=== PATIENT | female | born 1940 | race Caucasian/White ===

== ENCOUNTER → 2016-06-27 | Outpatient (REF) ==
[~2016-06-27] MED LIST: ASPIR-LOW81 MG PO; CLOPIDOGREL; MEVACOR; NEXIUM PO; NEXIUM40 MG PO; TOPROL; TRIAVIL; ZEGERID 20 MG-11 CAP PO; ZOCOR 20MG20 MG PO; [UNRECOGNIZED DRUG - OTHER]
[2016-06-27 13:25] LABS: THYROID STIMULATING HORMONE 0.452 uIU/mL (0.465-4.680)
== END ==
LOC: ZLAB.WCH 12:03
PROVIDERS: Family Medicine
DX: Z01.89 Encounter for other specified special examinations (principal)

== ENCOUNTER → 2017-07-07 | Outpatient (REF) ==
[2017-07-07 17:25] LABS: THYROID STIMULATING HORMONE 0.307 uIU/mL (0.465-4.680)
== END ==
LOC: ZLAB.WCH 16:04
PROVIDERS: Family Medicine
DX: Z01.89 Encounter for other specified special examinations (principal)

== ENCOUNTER 2019-02-18 23:42 | Emergency (ER) | payer MEDICARE, OTHER ==
[~2019-02-18] VITALS: Ht 152.4 cm; Wt 33.6 kg
[2019-02-19 01:16] LABS: BASO # 0.1 (0.0-0.2); BASO % 0.5 % (0.0-2.0); EOS # 0.3 (0.0-0.7); EOS % 2.6 % (0-4.0); GRAN # 8.1 (1.4-6.5); GRAN % 68.6 % (42.2-75.2); LYMPH # 2.5 (1.2-3.4); LYMPH % 21.4 % (20.0-51.0); MEAN CELL VOLUME 85 fl (80.0-100.0); MEAN CORPUSCULAR HGB CONC 32 g/dl (33.0-37.0); MEAN PLATELET VOLUME 9.7 fl (7.4-10.4); MONO # 0.8 (0.1-0.6); MONO % 6.6 % (1.7-9.3); PLATELET COUNT 274 K/mm3 (130-400); RED BLOOD COUNT 3.33 M/mm3 (4.10-5.30); REDCELL DISTRIBUTION WIDTH-CV 13.9 % (11.5-14.5)
[2019-02-19 01:17] LABS: HEMATOCRIT 28.3 % (37.0-47.0); HEMOGLOBIN 9.1 g/dl (12.5-16.0); MEAN CORPUSCULAR HEMOGLOBIN 27 pg (27.0-31.0)
[2019-02-19 01:26] LABS: ALBUMIN 3.4 gm/dL (3.5-5.0); BILIRUBIN,TOTAL 0.5 mg/dL (0.0-1.0); CALCIUM 9.5 mg/dL (8.4-10.2); CREATININE, serum 1.31 (0.52-1.25); POTASSIUM 3.8 mmol/L (3.4-5.0); TOTAL PROTEIN 6.7 gm/dL (6.4-8.2)
[2019-02-19 05:59] VITALS: TEMP 97.5
[2019-02-19 08:12] VITALS: BP 146/65
[2019-02-19 10:30] VITALS: PULSE 97
--- NOTE | 2019-02-19 12:44 | NUR ---
lubrication worker received consult about patient possibly being homeless. SW met with patient in room about her home statues. Patient reports that she lives by herself and used and ambulance to get to the hospital. Patient reports that she does not have any family in the area. FELICE met with nurse and about patient. Nurse reports that the patients Daughter brought her to the ER and there was a verbal altercation in which is is speculated that Daughter stated that the patient could not come back home. Nurse reports that the patient resides with her daughter. Patient intentionally gave the wrong phone number to call her stating that he was and A-hole and she wanted nothing to do with her family that she originally stated that she did not have. SW made contact with her Yohan , who stated that she can come home and that he would come to get her. Patient reports that she does not want to talk to him or their DTR. Patient requested to speak with the Dr. SW offered patient additional resources including correction if she felt unsafe going home. Patient ignored most of the FELICE questions. Nothing follows/
[2019-02-20] MEDS ORDERED: EFFER-K20 MEQ PO (11:21)
[2019-02-20] MEDS ORDERED: MEGACE20 MG PO (11:22)
[2019-02-20] MEDS ORDERED: CULTURELLE WOM1 EACH PO (11:22)
[2019-02-20] MEDS ORDERED: DULCOLAX STOOL100 MG PO (11:23)
[2019-02-20] MEDS ORDERED: GENTLE LAXATIVE5 MG PO (11:23)
[2019-02-20] MEDS ORDERED: NATURAL POTASS595 MG PO (11:24)
[2019-02-20] MEDS ORDERED: DETROL LA4 PO (11:24)
[2019-02-20] MEDS ORDERED: DESYREL 50MG50 MG PO (11:25)
[2019-02-20] MEDS ORDERED: ADVIL200 MG PO (11:25)
[2019-02-20] MEDS ORDERED: XANAX .25M0.25 MG/TA PO (11:26)
[2019-02-20] MEDS ORDERED: ZOCOR 20MG20 MG PO (11:26)
== END 2019-02-19 10:30 | disposition home or self-care (01) ==
LOC: COL.ER 23:42
PROVIDERS: Emergency Medicine
DX: K59.00 Constipation, unspecified (principal); K21.9 Gastro-esophageal reflux disease without esophagitis; D64.9 Anemia, unspecified; F17.210 Nicotine dependence, cigarettes, uncomplicated; Z86.73 Personal history of transient ischemic attack (TIA), and cerebral infarction without residual deficits; Z95.5 Presence of coronary angioplasty implant and graft

== ENCOUNTER 2019-02-20 02:26 | Inpatient (IN) | payer MEDICARE, OTHER ==
[~2019-02-20] VITALS: Ht 152.4 cm; Wt 88.4 kg
[2019-02-20] VITALS (11 sets, daily range): BP systolic 130–184; BP diastolic 60–98; PULSE 81–103; TEMP 97.2–98.6
[2019-02-20 03:08] LABS: BASO # 0.1 (0.0-0.2); BASO % 0.5 % (0.0-2.0); EOS # 0.4 (0.0-0.7); EOS % 2.4 % (0-4.0); GRAN # 14.5 (1.4-6.5); GRAN % 77.9 % (42.2-75.2); HEMATOCRIT 27.3 % (37.0-47.0); HEMOGLOBIN 8.8 g/dl (12.5-16.0); LYMPH # 2.4 (1.2-3.4); LYMPH % 12.8 % (20.0-51.0); MEAN CELL VOLUME 86 fl (80.0-100.0); MEAN CORPUSCULAR HEMOGLOBIN 28 pg (27.0-31.0); MEAN CORPUSCULAR HGB CONC 32 g/dl (33.0-37.0); MEAN PLATELET VOLUME 10.2 fl (7.4-10.4); MONO # 1.1 (0.1-0.6); MONO % 5.7 % (1.7-9.3); PLATELET COUNT 279 K/mm3 (130-400); RED BLOOD COUNT 3.19 M/mm3 (4.10-5.30)
[2019-02-20 03:17] LABS: ALBUMIN 3.4 gm/dL (3.5-5.0); BILIRUBIN,TOTAL 0.4 mg/dL (0.0-1.0); CALCIUM 8.8 mg/dL (8.4-10.2); CREATININE, serum 1.31 (0.52-1.25); POTASSIUM 3.6 mmol/L (3.4-5.0); TOTAL PROTEIN 6.7 gm/dL (6.4-8.2)
[2019-02-20 03:50] LABS: TROPONIN-I 0.103 ng/mL (0.000-0.035)
[2019-02-20 04:59] LABS: COLLECTION METHOD CATHETER
[2019-02-20 05:01] LABS: INR 1.1 (0.8-3.0); PROTHROMBIN TIME 12.6 SECONDS (9.7-12.8)
[2019-02-20 05:04] LABS: PH 8 (5-8); SQUAMOUS EPITHELIAL 0-2 /hpf; URINE APPEARANCE Clear; URINE BACTERIA None Seen /hpf; URINE BILIRUBIN Negative (NEGATIVE); URINE BLOOD Negative (NEGATIVE); URINE COLOR Straw; URINE GLUCOSE Negative (NEGATIVE); URINE KETONE Negative (NEGATIVE); URINE LEUKOCYTE ESTERASE Negative (NEGATIVE); URINE NITRATE Negative (NEGATIVE); URINE PROTEIN(semi-quant) Negative (NEGATIVE); URINE RBC 0-2 /hpf; URINE UROBILINOGEN Negative (NEGATIVE)
[2019-02-20 05:04] LABS: PARTIAL THROMBOPLASTIN TIME 24.2 SECONDS (26.0-37.0)
--- NOTE | 2019-02-20 10:52 | NUR ---
SW Met with patient in room. SW initially met with patient alone in room. Patient reports that she remembers talking with SW yestarday. Patient began to talk with social about what happened. Family walked in and the patient changed her demeanor and no longer wanted to talk. Patient's DTR Patty Aragon . DPOA is Cherie Bach . SW made contact with DPOA and DPOA indicated that she was on a ride at [employer]. DPOA stated, "anything my dad wants, you can talk to him." Yohan- Cell. When family came in the room patient became visibly guarded, began to answer questions on behalf of client and sw reconfirmed the decision with patient. Patient report that she does not have a PCP. Patient [facility] Patient has a rotalor at home and regular walker but does not use them all the time. indicated that his needs to go to a SNF after surgery immediately. Daughter reports that they would like her to go to [facility]. Patient agreed. No choice form signed yet. [facility] Intake # [id number] farmworker machine to follow care and care concerns in home. Fax referral to [facility].
[2019-02-20] MEDS ORDERED: EFFER-K20 MEQ PO (11:21)
[2019-02-20] MEDS ORDERED: CULTURELLE WOM1 EACH PO (11:22)
[2019-02-20] MEDS ORDERED: MEGACE20 MG PO (11:22)
[2019-02-20] MEDS ORDERED: GENTLE LAXATIVE5 MG PO (11:23)
[2019-02-20] MEDS ORDERED: DULCOLAX STOOL100 MG PO (11:23)
[2019-02-20] MEDS ORDERED: DETROL LA4 PO (11:24)
[2019-02-20] MEDS ORDERED: NATURAL POTASS595 MG PO (11:24)
[2019-02-20] MEDS ORDERED: ADVIL200 MG PO (11:25)
[2019-02-20] MEDS ORDERED: DESYREL 50MG50 MG PO (11:25)
[2019-02-20] MEDS ORDERED: ZOCOR 20MG20 MG PO (11:26)
[2019-02-20] MEDS ORDERED: XANAX .25M0.25 MG/TA PO (11:26)
[2019-02-20 15:22] LABS: HEMATOCRIT 27.5 % (37.0-47.0)
--- NOTE | 2019-02-20 17:10 | NUR ---
PATIENT ADMITED INTO ROOM 326 POST OP LEFT HIP FX. LLE DRESSINGS ARE CD&I WITH GAUZE & TEGA X3. TEDS TO RLE. SCD'S TO BLE. POSITIVE +1 PEDAL PULSES TO BLE. COKER TO DD. IV FLUIDS INFUSING VIA PUMP. NO C/O N/V. LIQUIDS AT BEDSIDE. HEAD TO TOE ASSESSMENT COMPLETE. FAMILY AT BEDSIDE. PATIENT TURNING AWAY FROM FAMILY AND WONT TALK TO THEM. ICU NURSE REPORTED PATIENT WAS ORIGIONALLY BROUGHT IN FOR CONSTIPATION AND WHEN DAUGHTER [place] WAS CALLED TO COME PICK THE PATIENT UP, SHE REFUSED STATING SHE WAS TIRED OF TAKING CARE OF HER MOTHER. BOX BLANK MACHINE OPERATOR NOW INVOLVED. PATIENT'S CAME TO GET HER AND SEVERAL HOURS LATER SHE WAS BACK IN OUR ER WITH A LEFT HIP FX. PATIENT IS A DNR. ORIENTED X2. PATIENT HAS SOME UNDERLINED DEMENTIA HOWEVER, KNOWS SHE FX HER LLE. PATIENT ANSWERING NURINGS QUESTIONS. ORIENTED TO ROOM. CALL LIGHT IN REACH.
--- NOTE | 2019-02-20 18:24 | NUR ---
FAMILY NOW BACK AT BEDSIDE WITH . PATIENT SHAKING. WARM BLANKETS APPLIED. WILL MONITOR.
--- NOTE | 2019-02-20 20:00 | NUR ---
PATIENT WATCHING TV. IS ALERT AND ORIENTED X2. HAS IVF INFUSING TO LEFT AC WITHOUT REDNESS OR SWELLING. ICE PACK TO LEFT HIP, DRSG'S X3 D/I TO LEFT HIP. DENIES NEED FOR PAIN MEDS AT THIS TIME.
--- NOTE | 2019-02-20 22:12 | NUR ---
SPOKE WITH DR CORNELIUS REGARDING PREVIOUSLY ORDERED HEPARIN GTT, ORDER TO DC AND MAY START BABY ASA 81MG WHEN OK WITH ORTHO.
[2019-02-21 00:08] VITALS: BP 144/61; PULSE 96; TEMP 98.1
--- NOTE | 2019-02-21 01:42 | NUR ---
HEARD PATIENT MOANING, DENIES NEED FOR PAIN MEDS AT THIS TIME. MOVES LEFT LEG ON BED WITHOUT OBVIOUS PAIN. AWAKE, WATCHING TV.
--- NOTE | 2019-02-21 02:53 | NUR ---
PATIENT REPORTS PAIN TO LEFT HIP AND BEING COLD. MEDICATED WITH MORPHINE 2MG IVP AND GIVEN WARM BLANKET.
[2019-02-21 04:00] VITALS: BP 141/53; PULSE 91; TEMP 97.9
--- NOTE | 2019-02-21 05:00 | NUR ---
Patient confused and thinks someone is shaving her skin. No longer complains of feeling cold. IVF to left AC without redness or swelling.
[2019-02-21 07:26] LABS: BASO % 0.3 % (0.0-2.0); EOS % 0.2 % (0-4.0); LYMPH # 1.5 (1.2-3.4); LYMPH % 10.1 % (20.0-51.0); MEAN CELL VOLUME 85 fl (80.0-100.0); MEAN CORPUSCULAR HGB CONC 32 g/dl (33.0-37.0); MEAN PLATELET VOLUME 10.6 fl (7.4-10.4); MONO # 1.2 (0.1-0.6); MONO % 7.9 % (1.7-9.3); PLATELET COUNT 247 K/mm3 (130-400); RED BLOOD COUNT 2.78 M/mm3 (4.10-5.30); REDCELL DISTRIBUTION WIDTH-CV 14.2 % (11.5-14.5)
[2019-02-21 07:28] LABS: ALBUMIN 2.9 gm/dL (3.5-5.0); BILIRUBIN,TOTAL 0.5 mg/dL (0.0-1.0); CALCIUM 8.5 mg/dL (8.4-10.2); POTASSIUM 3.5 mmol/L (3.4-5.0); TOTAL PROTEIN 5.8 gm/dL (6.4-8.2)
[2019-02-21 07:33] LABS: HEMATOCRIT 23.6 % (37.0-47.0); HEMOGLOBIN 7.6 g/dl (12.5-16.0); MEAN CORPUSCULAR HEMOGLOBIN 27 pg (27.0-31.0)
[2019-02-21 07:37] VITALS: BP 136/54; PULSE 98; TEMP 98.6
--- NOTE | 2019-02-21 08:00 | NUR ---
PATIENT IS CONFUSED AT BASELINE X2. VSS. PATIENT APPEARS TO BE COMFORTABLE AT REST. LEFT HIP DRESSINGS ARE CD&I X3 WITH GAUZE & TEGA. TEDS & SCD'S TO BLE. POSITIVE PEDAL PULSES TO BLE. PATIENT IS VERY THIN, AND REPORTS NO APPETITE. NO C/O N/V. PATIENT NEEDS ENCOURAGEMENT TO EAT. PATIENT DID EAT SOME BREAKFAST AND TOOK AM MEDS. HEAD TO TOE ASSESSMENT COMPLETE. IV FLUIDS INFUSING VIA PUMP INTO LEFT AC IV. TELE INPLACE. HEART IRREGULAR IN THE 80-90'S. PATIENT IS A DNR. NO FAMILY AT BEDSIDE. PATIENT WILL REQUIRE REHAB ON DISCHARGE. COILED TUBING SUPERVISOR WORKING ON DISCHARGE NEEDS. NO OTHER NEEDS. CALL LIGHT IN REACH. BED ALARM ON.
[2019-02-21 09:08] LABS: IRON,SERUM 29 ug/dL (35-150)
[2019-02-21 09:17] LABS: TOTAL IRON BINDING CAPACITY 195 ug/dL (265-497)
--- NOTE | 2019-02-21 09:42 | NUR ---
FELICE presented Medicare.gov's list of nursing facilities. The patient reports she will review the list and then let FELICE know later.
[2019-02-21] MEDS ORDERED: LEXAPRO 5MG5 MG PO (09:58)
[2019-02-21 12:09] LABS: RETIC # 0.05 M/mm3 (0.02-0.16); RETIC % 1.9 % (0.5-3.52)
[2019-02-21 12:50] VITALS: BP 137/61; PULSE 95; TEMP 98.9
--- NOTE | 2019-02-21 12:51 | NUR ---
SW received the patient's DPOA-HC/Living Will/DNR paperwork from [facility] and placed in the patient's chart. The DPOA-HC is the patient's daughter, Cherie. Cherie asked to speak to the hospitalist in order to decide placement. Cherie reports that her and the patient's with collabarate with the patient to decide placement.
--- NOTE | 2019-02-21 13:45 | NUR ---
REPORTED OFF TO MARIBELLBERONICA Dominguez.
[2019-02-21 17:09] VITALS: BP 106/47; PULSE 92; TEMP 98.4
--- NOTE | 2019-02-21 18:26 | NUR ---
Patient resting in bed at this time. Patient is becoming increasingly confused, is calling out for her daughter and is unable to be reoriented. Patient gives no indications of having pain. Jacobs in place per order. IVF continue. Call light within reach, bed alarm on, patient is visible from nurses' station.
[2019-02-21 19:48] VITALS: BP 133/65; PULSE 104; TEMP 97.9
[2019-02-22] VITALS: BP 128/55; PULSE 69; PULSE 90; TEMP 97.9
--- NOTE | 2019-02-22 01:04 | NUR ---
PATIENT DOING OK TONIGHT. ALERT, BUT CONFUSED AT TIMES. INCREASINGLY AGITATED THROUGHOUT EVENING. RESTING COMFORTABLY NOW. COKER DRAINING CLEAR YELLOW URINE. IVF INFUSING TO L AC. DID NOT EAT DINNER. REFUSED EVENING MEDICATIONS EXCEPT FOR TYLENOL. EXPLAINED TO PATIENT THE NEED FOR ASPIRIN. PATIENT BECAME AGITATED AND CONTINUED TO REFUSE. PAIN TO L HIP. NO FURTHER NEEDS AT THIS TIME. WILL CONTINUE TO MONITOR.
[2019-02-22 04:00] VITALS: BP 143/63; PULSE 85; TEMP 97.6
[2019-02-22 07:40] VITALS: BP 122/62; PULSE 89; TEMP 98
--- NOTE | 2019-02-22 09:10 | NUR ---
FELICE received phone call from ERIC Ahumada to inquire if the patient was is still hospitalized and to provided patient's daughter phone number. FELICE faxed [facility]- information to .
--- NOTE | 2019-02-22 10:33 | NUR ---
PATIENT RESTING IN RECLINER AFTER WORKING WITH THERAPY. AM MEDS GIVEN ORDERED.
[2019-02-22 10:39] LABS: BASO % 0.3 % (0.0-2.0); EOS % 0.3 % (0-4.0); GRAN # 7.8 (1.4-6.5); GRAN % 78.2 % (42.2-75.2); LYMPH # 1.2 (1.2-3.4); LYMPH % 11.6 % (20.0-51.0); MEAN CELL VOLUME 85 fl (80.0-100.0); MEAN CORPUSCULAR HGB CONC 33 g/dl (33.0-37.0); MEAN PLATELET VOLUME 11.2 fl (7.4-10.4); MONO # 0.9 (0.1-0.6); MONO % 9.2 % (1.7-9.3); PLATELET COUNT 198 K/mm3 (130-400); RED BLOOD COUNT 2.58 M/mm3 (4.10-5.30)
[2019-02-22 10:44] LABS: HEMATOCRIT 21.8 % (37.0-47.0); HEMOGLOBIN 7.1 g/dl (12.5-16.0); MEAN CORPUSCULAR HEMOGLOBIN 28 pg (27.0-31.0)
[2019-02-22 10:55] LABS: CALCIUM 8.4 mg/dL (8.4-10.2); CREATININE, serum 1.05 (0.52-1.25)
--- NOTE | 2019-02-22 11:11 | NUR ---
SW presented the patient choice form to the patient's , Yohan via telephone. The first choice is [facility] and second choice [facility]. SW faxed referrals. Awaiting responses.
[2019-02-22 11:17] VITALS: BP 131/83; BP 133/56; PULSE 81; PULSE 83; TEMP 97.6; TEMP 98.9
--- NOTE | 2019-02-22 15:19 | NUR ---
Opal from [facility] reports they would like to follow and receive updates 02/23 and 02/24 due to the patient's stability, anemia worsening and electrolytes were low. Vidal from [facility] reports they can accept the patient but he still has to check the secondary insurance. He reports he attempted to call the secondaries office but it was closed. custodial services manager will continue to follow.
[2019-02-22 15:41] VITALS: BP 132/51; PULSE 79; TEMP 98.4
[2019-02-22 20:01] VITALS: BP 130/65; PULSE 89; TEMP 98.2
[2019-02-23 00:44] VITALS: BP 129/59; PULSE 93; TEMP 99.2
--- NOTE | 2019-02-23 02:06 | NUR ---
PATIENT DOING WELL TONIGHT. PRN PAIN MEDICATION GIVEN FOR MODERATE PAIN, ORVILLE AND MORPHINE. COKER CATHETER DRAINING CLEAR YELLOW URINE. INT TO L AC FLUSHES EASILY. PATIENT CONFUSED AT TIMES. SERUM POTASSIUM UP TO 4.0, 3 HR AFTER FINAL DOSE. PATIENT RESTING COMFORTABLY THROUGHOUT THE NIGHT. X3 INCISION SITES TO L HIP CDI WITH GUAZE AND TEGADERM. NO FURTHER NEEDS AT THIS TIME. WILL CONTIUE TO MONITOR.
[2019-02-23 05:02] VITALS: BP 141/76; PULSE 101; TEMP 98.8
--- NOTE | 2019-02-23 07:02 | NUR ---
Report from Pebbles ARZATE.
--- NOTE | 2019-02-23 07:37 | NUR ---
PT C/O CHEST PAIN RADIATING DOWN RIGHT ARM. DR. OMER NOTIFIED SEE COMPUTER FOR ORDERS.
--- NOTE | 2019-02-23 07:47 | NUR ---
ASA 325 GIVEN NOW PER ORDERS
[2019-02-23 08:09] LABS: BASO % 0.4 % (0.0-2.0); EOS % 0.2 % (0-4.0); GRAN # 6.6 (1.4-6.5); GRAN % 76.7 % (42.2-75.2); LYMPH # 1.2 (1.2-3.4); MEAN CELL VOLUME 86 fl (80.0-100.0); MEAN CORPUSCULAR HGB CONC 33 g/dl (33.0-37.0); MEAN PLATELET VOLUME 11.5 fl (7.4-10.4); MONO # 0.7 (0.1-0.6); MONO % 8.3 % (1.7-9.3); PLATELET COUNT 224 K/mm3 (130-400); RED BLOOD COUNT 2.64 M/mm3 (4.10-5.30); REDCELL DISTRIBUTION WIDTH-CV 14.3 % (11.5-14.5)
[2019-02-23 08:15] LABS: HEMATOCRIT 22.6 % (37.0-47.0); HEMOGLOBIN 7.4 g/dl (12.5-16.0); MEAN CORPUSCULAR HEMOGLOBIN 28 pg (27.0-31.0)
[2019-02-23 08:29] LABS: CALCIUM 8.3 mg/dL (8.4-10.2); CREATININE, serum 1.11 (0.52-1.25); POTASSIUM 3.9 mmol/L (3.4-5.0)
--- NOTE | 2019-02-23 09:07 | NUR ---
PT REFUSED FLU VACCINE.
--- NOTE | 2019-02-23 10:04 | NUR ---
The patient is to be tranferred to [facility] in [place] this day. The patient's nurse contacted the patient's , Yohan about the transfer. Yohan was in agreeance. supervisor shaving and splitting set up transportation. There are no additional needs at this time.
--- NOTE | 2019-02-23 10:05 | NUR ---
notified Yohan Bangura of transfer to [facility].
[2019-02-23 10:41] LABS: PARTIAL THROMBOPLASTIN TIME 24.5 SECONDS (26.0-37.0)
[2019-02-23 10:42] VITALS: BP 144/62; PULSE 73; TEMP 98
--- NOTE | 2019-02-23 10:56 | NUR ---
BLOOD AND HEPARIN STARTED PT TOLERATING WELL.
[2019-02-23 11:00] VITALS: BP 120/64; PULSE 72; TEMP 98.1
--- NOTE | 2019-02-23 11:02 | NUR ---
TRASFERED PT TO [facility] FOR TRANSFER AT THIS TIME WITH HEPARIN AND BLOOD RUNNING IV PER ORDERS.
--- NOTE | 2019-02-23 11:24 | NUR ---
Report called to Iveth Phillips.
== END 2019-02-23 11:26 | disposition short-term general hospital (02) | DRG 480 ==
LOC: COL.ER 02:26 → SURG 03:36 → ICU 03:36 → SURG 15:27
PROVIDERS: Emergency Medicine; Nurse Anesthetist, Certified Registered; Nurse Practitioner Family; Orthopaedic Surgery Sports Medicine; Physician Assistant; ADMIT Student in an Organized Health Care Education/Training Program
PROC: 0QH736Z Insertion of Intramedullary Internal Fixation Device into Left Upper Femur, Percutaneous Approach (ICD-10-PCS; principal; 2019-02-20 15:00)
DX: S72.142A Displaced intertrochanteric fracture of left femur, initial encounter for closed fracture (principal); I21.4 Non-ST elevation (NSTEMI) myocardial infarction; E46 Unspecified protein-calorie malnutrition; Z68.1 Body mass index [BMI] 19.9 or less, adult; W19.XXXA Unspecified fall, initial encounter; E78.5 Hyperlipidemia, unspecified; I25.10 Atherosclerotic heart disease of native coronary artery without angina pectoris; Z95.5 Presence of coronary angioplasty implant and graft; Z86.73 Personal history of transient ischemic attack (TIA), and cerebral infarction without residual deficits; Z72.0 Tobacco use; K21.9 Gastro-esophageal reflux disease without esophagitis; F41.8 Other specified anxiety disorders
CPT/HCPCS: 99222-AI; 99232-AI; A9284; C1713; C9113; J0360; J0690; J1170; J1644; J2270; J2704; J2795; J3010; J7030; P9016; Q9967

== ENCOUNTER → 2019-03-10 | Outpatient (CLI) | payer MEDICARE, OTHER ==
[~2019-03-10] MED LIST changes: +ADVIL200 MG PO; +CULTURELLE WOM1 EACH PO; +DESYREL 50MG50 MG PO; +DETROL LA4 PO; +DULCOLAX STOOL100 MG PO; +EFFER-K20 MEQ PO; +GENTLE LAXATIVE5 MG PO; +LEXAPRO 5MG5 MG PO; +MEGACE20 MG PO; +NATURAL POTASS595 MG PO; +XANAX .25M0.25 MG/TA PO
[2019-03-10 18:35] LABS: COLLECTION METHOD CLEAN CATCH
[2019-03-10 19:09] LABS: MUCOUS Present /lpf; PH 7 (5-8); URINE APPEARANCE Hazy; URINE BACTERIA Rare /hpf; URINE BILIRUBIN Negative (NEGATIVE); URINE BLOOD Negative (NEGATIVE); URINE COLOR Yellow; URINE GLUCOSE Negative (NEGATIVE); URINE KETONE Negative (NEGATIVE); URINE LEUKOCYTE ESTERASE Trace (NEGATIVE); URINE NITRATE Negative (NEGATIVE); URINE PROTEIN(semi-quant) Negative (NEGATIVE); URINE UROBILINOGEN Negative (NEGATIVE); URINE WBC 20-50 /hpf
== END ==
LOC: ZCOL.LAB 18:29
PROVIDERS: Internal Medicine
DX: N39.498 Other specified urinary incontinence (principal)

== ENCOUNTER 2019-03-21 09:17 | Emergency (ER) | payer MEDICARE, OTHER ==
[~2019-03-21] VITALS: Ht 160 cm; Wt 34.1 kg
[2019-03-21 09:23] VITALS: TEMP 98.8
[2019-03-21 10:39] LABS: BASO % 0.3 % (0.0-2.0); EOS # 0.1 (0.0-0.7); EOS % 0.4 % (0-4.0); GRAN % 82.6 % (42.2-75.2); HEMOGLOBIN 10.8 g/dl (12.5-16.0); LYMPH # 1.1 (1.2-3.4); LYMPH % 8.8 % (20.0-51.0); MEAN CELL VOLUME 88 fl (80.0-100.0); MEAN CORPUSCULAR HEMOGLOBIN 28 pg (27.0-31.0); MEAN CORPUSCULAR HGB CONC 31 g/dl (33.0-37.0); MEAN PLATELET VOLUME 11.7 fl (7.4-10.4); MONO # 0.9 (0.1-0.6); MONO % 7.4 % (1.7-9.3); PLATELET COUNT 172 K/mm3 (130-400); RED BLOOD COUNT 3.92 M/mm3 (4.10-5.30); REDCELL DISTRIBUTION WIDTH-CV 15.3 % (11.5-14.5)
[2019-03-21 10:44] LABS: HEMATOCRIT 34.4 % (37.0-47.0)
[2019-03-21 10:45] LABS: INR 1.1 (0.8-3.0); PROTHROMBIN TIME 12.8 SECONDS (9.7-12.8)
[2019-03-21 10:46] LABS: ALBUMIN 3.7 gm/dL (3.5-5.0); BILIRUBIN,TOTAL 1.3 mg/dL (0.0-1.0); CALCIUM 9.3 mg/dL (8.4-10.2); CREATININE, serum 1.19 (0.52-1.25); MAGNESIUM 2.3 mg/dL (1.6-2.3); POTASSIUM 3.6 mmol/L (3.4-5.0); TOTAL PROTEIN 6.7 gm/dL (6.4-8.2)
[2019-03-21 10:47] LABS: PARTIAL THROMBOPLASTIN TIME 25.5 SECONDS (26.0-37.0)
[2019-03-21 11:12] LABS: COLLECTION METHOD CATHETER
[2019-03-21 11:20] LABS: MUCOUS Present /lpf; PH 5 (5-8); SQUAMOUS EPITHELIAL 0-2 /hpf; URINE APPEARANCE Clear; URINE BACTERIA None Seen /hpf; URINE BILIRUBIN Negative (NEGATIVE); URINE BLOOD Negative (NEGATIVE); URINE COLOR Amber; URINE GLUCOSE Negative (NEGATIVE); URINE KETONE Trace (NEGATIVE); URINE LEUKOCYTE ESTERASE Negative (NEGATIVE); URINE NITRATE Negative (NEGATIVE); URINE PROTEIN(semi-quant) 1+ (NEGATIVE); URINE RBC 0-2 /hpf; URINE UROBILINOGEN >=4.0 mg/dL (NEGATIVE)
[2019-03-21 11:32] LABS: TROPONIN-I 0.013 ng/mL (0.000-0.035)
[2019-03-21] MEDS ORDERED: LOPRESSOR 225 MG/TAB PO (11:35)
[2019-03-21] MEDS ORDERED: ASPIRIN 81M81 MG/TA2 PO (12:06)
[2019-03-21] MEDS ORDERED: ZANAFLEX CAPSULE2 MG PO (12:07)
[2019-03-21] MEDS ORDERED: MEGACE20 MG (12:12)
[2019-03-21 15:30] VITALS: BP 144/71; PULSE 110
== END 2019-03-21 15:54 | disposition home or self-care (01) ==
LOC: COL.ER 09:17
PROVIDERS: Emergency Medicine
DX: K56.41 Fecal impaction (principal); I25.10 Atherosclerotic heart disease of native coronary artery without angina pectoris; N18.9 Chronic kidney disease, unspecified; K21.9 Gastro-esophageal reflux disease without esophagitis; E78.00 Pure hypercholesterolemia, unspecified; Z95.5 Presence of coronary angioplasty implant and graft; Z86.73 Personal history of transient ischemic attack (TIA), and cerebral infarction without residual deficits; Z79.82 Long term (current) use of aspirin
CPT/HCPCS: J3010; J7040; Q9967

== ENCOUNTER 2019-03-23 19:00 | Emergency (ER) | payer MEDICARE, OTHER ==
[~2019-03-23] VITALS: Ht 152.4 cm; Wt 35.0 kg
[~2019-03-23 19:00] MED LIST changes: +ASPIRIN 81M81 MG/TA2 PO; +LOPRESSOR 225 MG/TAB PO; +MEGACE20 MG; +ZANAFLEX CAPSULE2 MG PO
[2019-03-23 19:01] VITALS: TEMP 98.6
[2019-03-23 19:54] LABS: BASO % 0.4 % (0.0-2.0); EOS # 0.1 (0.0-0.7); EOS % 1.6 % (0-4.0); GRAN # 5.8 (1.4-6.5); HEMOGLOBIN 10.8 g/dl (12.5-16.0); LYMPH # 1.5 (1.2-3.4); LYMPH % 18.1 % (20.0-51.0); MEAN CELL VOLUME 88 fl (80.0-100.0); MEAN CORPUSCULAR HEMOGLOBIN 28 pg (27.0-31.0); MEAN CORPUSCULAR HGB CONC 31 g/dl (33.0-37.0); MEAN PLATELET VOLUME 11.5 fl (7.4-10.4); MONO # 0.7 (0.1-0.6); MONO % 8.7 % (1.7-9.3); PLATELET COUNT 186 K/mm3 (130-400); RED BLOOD COUNT 3.91 M/mm3 (4.10-5.30); REDCELL DISTRIBUTION WIDTH-CV 14.8 % (11.5-14.5)
[2019-03-23 19:57] LABS: HEMATOCRIT 34.5 % (37.0-47.0)
[2019-03-23 20:05] LABS: BILIRUBIN,TOTAL 0.7 mg/dL (0.0-1.0); C-REACTIVE PROTEIN 1.9 mg/dL (0.0-0.9); CALCIUM 9.5 mg/dL (8.4-10.2); CREATININE, serum 1.35 (0.52-1.25); POTASSIUM 3.1 mmol/L (3.4-5.0); TOTAL PROTEIN 7.1 gm/dL (6.4-8.2)
[2019-03-23 20:46] LABS: ERYTHROCYTE SEDIMENTATION RATE 20 mm/hr (0-30)
[2019-03-23 21:30] VITALS: BP 160/68
[2019-03-23] MEDS ORDERED: SENOKOT S 50 MG1 TAB PO (22:57)
[2019-03-23] MEDS ORDERED: MIRALAX238G PO (22:57)
[2019-03-23 23:00] VITALS: PULSE 93
== END 2019-03-23 23:00 | disposition home or self-care (01) ==
LOC: COL.ER 19:00
PROVIDERS: Emergency Medicine
DX: K59.00 Constipation, unspecified (principal); I25.10 Atherosclerotic heart disease of native coronary artery without angina pectoris; F03.90 Unspecified dementia, unspecified severity, without behavioral disturbance, psychotic disturbance, mood disturbance, and anxiety; F32.9 Major depressive disorder, single episode, unspecified; K21.9 Gastro-esophageal reflux disease without esophagitis; F17.210 Nicotine dependence, cigarettes, uncomplicated; Z95.9 Presence of cardiac and vascular implant and graft, unspecified; Z79.82 Long term (current) use of aspirin

== ENCOUNTER 2019-04-14 12:29 | Emergency (ER) | payer MEDICARE, OTHER ==
[~2019-04-14] VITALS: Ht 152.4 cm; Wt 33.6 kg
[~2019-04-14 12:29] MED LIST changes: +MIRALAX238G PO; +SENOKOT S 50 MG1 TAB PO
[2019-04-14 12:32] VITALS: TEMP 97.8
[2019-04-14 13:29] LABS: BASO % 0.8 % (0.0-2.0); EOS # 0.2 (0.0-0.7); EOS % 3.5 % (0-4.0); GRAN # 3.2 (1.4-6.5); GRAN % 61.7 % (42.2-75.2); HEMATOCRIT 32.9 % (37.0-47.0); HEMOGLOBIN 10.1 g/dl (12.5-16.0); LYMPH # 1.3 (1.2-3.4); LYMPH % 25.6 % (20.0-51.0); MEAN CELL VOLUME 90 fl (80.0-100.0); MEAN CORPUSCULAR HEMOGLOBIN 28 pg (27.0-31.0); MEAN CORPUSCULAR HGB CONC 31 g/dl (33.0-37.0); MEAN PLATELET VOLUME 12.6 fl (7.4-10.4); MONO # 0.4 (0.1-0.6); PLATELET COUNT 128 K/mm3 (130-400); RED BLOOD COUNT 3.65 M/mm3 (4.10-5.30); REDCELL DISTRIBUTION WIDTH-CV 15.9 % (11.5-14.5)
[2019-04-14 13:45] LABS: ALANINE AMINOTRANSFERASE 17 U/L (9-52); ALBUMIN 4.1 gm/dL (3.5-5.0); ALKALINE PHOSPHATASE 82 U/L (50-136); ANION GAP 10 mmol/L (7-16); AST,SGOT 17 U/L (15-37); BILIRUBIN,TOTAL 0.9 mg/dL (0.0-1.0); BLOOD UREA NITROGEN 20 mg/dL (7-17); CALCIUM 9.6 mg/dL (8.4-10.2); CARBON DIOXIDE 22 mmol/L (22-30); CHLORIDE 114 mmol/L (98-107); CREATININE, serum 1.32 (0.52-1.25); GLUCOSE 99 mg/dL (74-106); POTASSIUM 3.3 mmol/L (3.4-5.0); SODIUM 145 mmol/L (137-145); TOTAL PROTEIN 6.8 gm/dL (6.4-8.2)
[2019-04-14 13:50] LABS: ALCOHOL(ethanol),MEDICAL < 10 mg/dL
[2019-04-14 13:57] LABS: BUDDING YEAST Present /hpf; MUCOUS Present /lpf; PH 5 (5-8); SQUAMOUS EPITHELIAL 20-50 /hpf; URINE APPEARANCE Cloudy; URINE BACTERIA Rare /hpf; URINE BILIRUBIN Negative (NEGATIVE); URINE BLOOD 3+ (NEGATIVE); URINE COLOR Yellow; URINE GLUCOSE Negative (NEGATIVE); URINE KETONE Trace (NEGATIVE); URINE LEUKOCYTE ESTERASE 2+ (NEGATIVE); URINE NITRATE Negative (NEGATIVE); URINE PROTEIN(semi-quant) 1+ (NEGATIVE); URINE UROBILINOGEN Negative (NEGATIVE)
[2019-04-14 14:05] LABS: TROPONIN-I < 0.012 ng/mL (0.000-0.035)
[2019-04-14 14:36] LABS: COLLECTION METHOD CLEAN CATCH
[2019-04-14] MEDS ORDERED: CEFTIN500 MG PO (15:45)
[2019-04-14] MEDS ORDERED: ZYPREXA 5MG5 MG PO (15:45)
[2019-04-14 16:27] VITALS: BP 149/100; PULSE 80
== END 2019-04-14 16:27 | disposition home or self-care (01) ==
LOC: COL.ER 12:29
PROVIDERS: Emergency Medicine
DX: N39.0 Urinary tract infection, site not specified (principal); F03.90 Unspecified dementia, unspecified severity, without behavioral disturbance, psychotic disturbance, mood disturbance, and anxiety; Z79.82 Long term (current) use of aspirin
CPT/HCPCS: J2060; J7030

== ENCOUNTER → 2019-05-23 | Outpatient (CLI) | payer MEDICARE, OTHER ==
[~2019-05-23] MED LIST changes: +CEFTIN500 MG PO; +ZYPREXA 5MG5 MG PO
[2019-05-23 15:54] LABS: COLLECTION METHOD CLEAN CATCH
[2019-05-23 16:24] LABS: BUDDING YEAST Present /hpf; MUCOUS Present /lpf; PH 5 (5-8); URINE APPEARANCE Cloudy; URINE BACTERIA Occasional /hpf; URINE BILIRUBIN Negative (NEGATIVE); URINE BLOOD Negative (NEGATIVE); URINE CALCIUM OXALATE CRYSTAL Present /hpf; URINE COLOR Yellow; URINE GLUCOSE Negative (NEGATIVE); URINE KETONE Negative (NEGATIVE); URINE LEUKOCYTE ESTERASE 2+ (NEGATIVE); URINE NITRATE Negative (NEGATIVE); URINE PROTEIN(semi-quant) 2+ (NEGATIVE); URINE UROBILINOGEN Negative (NEGATIVE); URINE WBC 20-50 /hpf
== END ==
LOC: ZCOL.LAB 13:19
PROVIDERS: Family Medicine
DX: Z01.89 Encounter for other specified special examinations (principal)

== ENCOUNTER 2019-06-26 22:53 | Inpatient (IN) | payer MEDICARE ==
[~2019-06-26] VITALS: Ht 157.5 cm; Wt 29.9 kg
[2019-06-26] MEDS ORDERED: ZOFRAN 4MG T4 MG/TAB PO (23:09)
[2019-06-26] MEDS ORDERED: PRILOSEC 20MG20 MG PO (23:10)
[2019-06-26] MEDS ORDERED: CELEXA10 MG PO (23:10)
[2019-06-26] MEDS ORDERED: ABILIFY 10MG TA10 MG PO (23:11)
[2019-06-26] MEDS ORDERED: MIRTAZAPINE7.5 MG PO (23:12)
[2019-06-26] MEDS ORDERED: ARICEPT 5MG PO (23:13)
[2019-06-26] MEDS ORDERED: REMERON 15M15 MG/TA1 PO (23:14)
[2019-06-26 23:26] LABS: BASO # 0.1 (0.0-0.2); BASO % 0.3 % (0.0-2.0); GRAN # 23.8 (1.4-6.5); GRAN % 87.6 % (42.2-75.2); HEMATOCRIT 44.2 % (37.0-47.0); HEMOGLOBIN 13.8 g/dl (12.5-16.0); LYMPH # 1.1 (1.2-3.4); LYMPH % 4.2 % (20.0-51.0); MEAN CELL VOLUME 88 fl (80.0-100.0); MEAN CORPUSCULAR HEMOGLOBIN 27 pg (27.0-31.0); MEAN CORPUSCULAR HGB CONC 31 g/dl (33.0-37.0); MEAN PLATELET VOLUME 11.9 fl (7.4-10.4); MONO # 1.9 (0.1-0.6); MONO % 7.1 % (1.7-9.3); PLATELET COUNT 282 K/mm3 (130-400); RED BLOOD COUNT 5.04 M/mm3 (4.10-5.30); REDCELL DISTRIBUTION WIDTH-CV 14.5 % (11.5-14.5)
[2019-06-26 23:30] LABS: ALBUMIN 4.5 gm/dL (3.5-5.0); BILIRUBIN,TOTAL 1.1 mg/dL (0.0-1.0); CALCIUM 10.4 mg/dL (8.4-10.2); CREATININE, serum 1.84 (0.52-1.25); POTASSIUM 3.1 mmol/L (3.4-5.0); TOTAL PROTEIN 7.9 gm/dL (6.4-8.2)
--- NOTE | 2019-06-27 01:45 | NUR ---
PT IN BED. ADMITTED FROM E.D. FOR COMFORT CARE. PLAN FOR HER TO GO TO HOSPICE. PT ON O2, 15 liters VIA NRB MASK.
[2019-06-27 03:00] VITALS: BP 103/62; PULSE 106
--- NOTE | 2019-06-27 03:00 | NUR ---
PT ADMINISTERED ATIVAN AND MORPHINE FOR COMFORT. O2 NOW AT 12 liters VIA OXYMASK. PT SEEMS TO BE RESTING COMFORTABLY.
[2019-06-27 03:39] VITALS: BP 135/76; PULSE 110; TEMP 97.1
[2019-06-27 05:58] VITALS: BP 136/76; PULSE 105; TEMP 97.6
[2019-06-27 08:00] VITALS: BP 161/94; PULSE 115; TEMP 97.7
--- NOTE | 2019-06-27 08:00 | NUR ---
PATIENT IS NON-VERBAL, AND LETHARGIC. NOTED ELEVATED B/P & HR. PATIENT ON 8L OXYMASK WITH OXYGEN SATS IN MID 90'S. A&P LUNG SILVEIRA ARE DEMINISHED. PATIENT IS VERY THIN, CASSANDRA, AND MALNOURISHED. PATIENT IS ON COMFORT CARES. DNR. COVID TEST PENDING. TURNING Q2-3H. FAILURE TO THRIVE. NPO. RIGHT FA IV TO INT. PATIENT IS INCONTINENT OF BOWL/BLADDER. PATIENT IS CURRENTLY DRY WITH BRIEF INPLACE. HEAD TO TOE ASSESSMENT COMPLETE. TALKED WITH DAUGHTER ON PHONE THIS AM.
--- NOTE | 2019-06-27 09:30 | NUR ---
FELICE received a phone call from Marisol at [facility]. Marisol reports that they were going to start hospice at home for the patient today. Per the H&P, the patient's daughter and DPOA-HC, Cherie, has decided to pursue the hospice house instead now. FELICE contacted the patient's daughter, Cherie, to discuss discharge plan. Cherie confirms that they are wanting the patient to go to the hospice house instead now. The patient's advanced directives are in EMR. The patient's DPOA-HC is her daughter's, Cherie Bach and Patty Lazaro. The patient is pending results for COVID-19. FELICE faxed updates to Marisol at [facility]. FELICE awaiting accceptance at the hospice house.
--- NOTE | 2019-06-27 10:35 | NUR ---
Marisol, at [facility], reports that they are able to accept the patient as soon as they receive the patient's COVID-19 results. The results are still pending. SW to update the patient's daughter and will continue to follow.
--- NOTE | 2019-06-27 11:00 | NUR ---
HOSPITALIST ROUNDING, SEE ORDERS.
--- NOTE | 2019-06-27 13:39 | NUR ---
FELICE updated the patient's daughter, Hattie, on the hospice house's acceptance pending the COVID-19 results. Hattie reports that she is having concerns about the cost of room and board at the hospice house. She states that the patient and the patient's have limited funds and she states that her sister would not be able to take care of the patient at home with hospice. FELICE notified Marisol at [facility] of these concerns. Marisol plans to contact Debbie. VIVEROS to continue to follow.
--- NOTE | 2019-06-27 14:55 | NUR ---
CHECKED AND REPOSITIONED PATIENT AGAIN. PATIENT BRIEF IS STILL DRY. NPO. PATIENT DID OPEN EYES AND SAID THE WORD "NO" WHEN TURNED. PATIENT IS BEING TURNED Q2-3H WITH PILLOWS TO KEEP OFF CASSANDRA PROMINENCES. NO FAMILY AT BEDSIDE TODAY. FAMILY HAS BEEN INSTRUCTED THAT, ONCE THEY ENTER THE HOSPITAL THEY NEED TO STAY. COMING AND GOING IS NOT ALLOWED DURING RESTRICTED VISITOR PERCAUTIONS. COVID TEST PENDING. PATIENT ON DROPLET/CONTACT. COMFORT CARES. NO NEEDS AT THIS TIME.
--- NOTE | 2019-06-27 16:00 | NUR ---
REPORTED OFF TO ICU CHARGE NURSE.
--- NOTE | 2019-06-27 16:12 | NUR ---
Wafer Cutter notified FELICE that the patient's daughter, Patty, arrived to the hospital and is stating that they are now wanting to take the patient home on hospice. Patty then left the hospital. FELICE contacted Marisol at [facility]. Marisol reports that the plan for the hospice house has not changed. She states that their bilingual social worker attempted to contact the patient's daughter, Cherie, to discuss their sliding scale fee and left a message. She states that she will reach out to Stevan again for him to try and get in contact with Cherie. FELICE then contacted Cherie. Cherie reports that the plan has not changed. She would still like to speak to Stevan about the sliding scale fee for the hospice house. She states that if they still cannot afford the hospice house, then she would look at hospice in the home. She states that she is a retired RN and would help take care of the patient in the home. FELICE informed Cherie that Stevan from [facility] will be getting in contact with her. Cherie verbalized understanding. FELICE to continue to follow.
--- NOTE | 2019-06-27 18:00 | NUR ---
Patient continues to rest with no s/s restlessness or discomfort. Patient turned for comfort. Will continue to monitor.
--- NOTE | 2019-06-27 19:25 | NUR ---
report given to HUEY Mckenzie
--- NOTE | 2019-06-27 23:30 | NUR ---
Report given to HUEY Ziegler.
--- NOTE | 2019-06-27 23:32 | NUR ---
Bedside report received from HUEY Mckenzie
--- NOTE | 2019-06-28 07:40 | NUR ---
Bedside report given to HUEY Broussard
--- NOTE | 2019-06-28 09:00 | NUR ---
Patient is DNR and comfort cares only, she is resting quietly at this time, does not appear to be in any acute distress or discomfort, breathing is easy and non-labored, accepted to hospice house pending COVID screen, Social work on the case and in touch with family
--- NOTE | 2019-06-28 09:58 | NUR ---
FELICE contacted the patient's daughter, Cherie, to follow up on decision for hospice house vs hospice at home. Cherie reports that she was able to speak to Stevan, social work coordinator at this hospice house, and she states that she has decided to pursue the hospice house. Cherie is driving to [place] from [place] today. The patient's COVID results are still pending. FELICE updated Cherie about this and notified Marisol at [facility]. FELICE to continue to follow.
--- NOTE | 2019-06-28 15:45 | NUR ---
The patient's COVID-19 results are still pending. FELICE updated Marisol at [facility]. Tentative discharge tomorrow to the hospice house, pending results. FELICE updated the patient's daughter, Cherie. SW to continue to follow.
--- NOTE | 2019-06-28 19:30 | NUR ---
Bedside report received from HUEY Broussard
--- NOTE | 2019-06-28 20:00 | NUR ---
Patient resting more comfortably now, patient was having an increased respiratory rate and WOB. Patient repositioned for comfort. No further needs at this time. Will continue to monitor.
--- NOTE | 2019-06-28 21:30 | NUR ---
Patient has been given a dose of morphine since patients WOB has increased again. Daughter, Cherie, at the bedside.
[2019-06-28 22:25] VITALS: TEMP 100.4
--- NOTE | 2019-06-29 06:35 | NUR ---
Patient has been deteriorating all night. Respirations have become shallow with little effort. Eyes no longer open when repositioning her. Some facial movement when name is called out, but no longer opens her eyes. Patient is unable to tolerate mouth swabs as she tries to suck on them and chokes on the slightest bit of water. Have been moistening lips with wash cloth for comfort. Patient's urine production has stopped with only a tiny amount of foul smelling urine found at the beginning of the shift. Have maintained Q2HR turning schedule throughout night. Daughter, Cherie, remains at bedside. No further needs at this time. Will continue to monitor.
--- NOTE | 2019-06-29 07:28 | NUR ---
Bedside report given to HUEY Saez
--- NOTE | 2019-06-29 07:32 | NUR ---
report from Karlie ARZATE.
--- NOTE | 2019-06-29 08:00 | NUR ---
PT RESTING QUIETLY AT THIS TIME. RESPIRATIONS EVEN AND UNLABORED. SPOKE WITH STEPHIE VIVEROS TO EXPIDITE TRANSFER TO HOSPICE HOUSE SO FAMILY MAY BE WITH PT. UPDATED RAH DA ON STATUS OF TRANSFER.
[2019-06-29] MEDS ORDERED: TRANSDERM-0.5 MG/21 TD (09:40)
[2019-06-29] MEDS ORDERED: ARTIFICIAL TEAR15 M7 OP (09:41)
[2019-06-29] MEDS ORDERED: DULCOLAX S10 MG/SUPP RC (09:41)
[2019-06-29] MEDS ORDERED: RT ALBUTER2.5 MG/0.5 IH (09:42)
[2019-06-29] MEDS ORDERED: ROXANOL 20MG20 MG/ML SL (09:43)
--- NOTE | 2019-06-29 10:20 | NUR ---
The patient's COVID-19 results are negative. SW notified and faxed the results to Marisol at [facility]. Marisol reports that they are able to accept the patient today and requested a 1100 transport. FELICE updated the clinical team and the patient's daughter, Cherie. Cherie has arrived from [place] and is in the patient's room. The patient is to discharge today, 06/28, to the [facility]. Transportation was set at 1100, via [facility]. FELICE informed the patient's RN and her daughter, Cherie. They were both in agreeance to the time. FELICE also read the IM form and the EMS Transfer Consent Forms outloud to Cherie. Cherie verbalized understanding and gave SW approval to sign both forms on her behalf. No additional needs at this time.
--- NOTE | 2019-06-29 11:11 | NUR ---
PT TRANSFERED TO [facility] AT THIS TIME BY EMS.
--- NOTE | 2019-06-29 11:23 | NUR ---
First visit from the geothermal operations manager. Station Supervisor prayed with patient and daughter. No other needs right now.
== END 2019-06-29 11:12 | disposition hospice, inpatient (51) | DRG 871 ==
LOC: COL.ER 22:53 → EU 23:52
PROVIDERS: Emergency Medicine; ADMIT Student in an Organized Health Care Education/Training Program
DX: A41.9 Sepsis, unspecified organism (principal); I21.4 Non-ST elevation (NSTEMI) myocardial infarction; J69.0 Pneumonitis due to inhalation of food and vomit; E87.1 Hypo-osmolality and hyponatremia; E87.2 Acidosis; E78.5 Hyperlipidemia, unspecified; I25.10 Atherosclerotic heart disease of native coronary artery without angina pectoris; K21.9 Gastro-esophageal reflux disease without esophagitis; Z66 Do not resuscitate; Z51.5 Encounter for palliative care; E87.6 Hypokalemia; F32.9 Major depressive disorder, single episode, unspecified; N18.9 Chronic kidney disease, unspecified; Z86.73 Personal history of transient ischemic attack (TIA), and cerebral infarction without residual deficits; Z79.82 Long term (current) use of aspirin
CPT/HCPCS: 99223-AI; 99233-AI; 99239; J2060; J2270; J7030